=== PATIENT | female | born 1955 | race Caucasian/White ===

== ENCOUNTER 2016-03-08 06:08 | Emergency (ER) | payer OTHER ==
[2016-03-08 07:02] VITALS: BP 110/78
--- NOTE | 2016-03-08 07:53 | Emergency Department Report ---
HPI - General Chief Complaint: Skin Rash Time Seen by Provider: 03/08/16 07:52 - HPI HPI: She is a 61-year-old female who presents to ED complaining of itching rash on her palm of her hands started yesterday. Patient states she has had this allergic reaction for the past 3-4 days and started taking [id number] antihistamine medication when yesterday she noticed a rash on both the palm of her hands. Patient also admits sneezing, runny nose, intermittent nonproductive cough. Patient denies fever/chills/nausea/vomiting/abdominal pain/chest chest pain/ shortness of breath or any other problem. ED Past Medical Hx - Past Medical History Previous Medical History?: Yes Hx Arthritis: Yes Additional medical history: pneumonia - Surgical History Past Surgical History?: Yes Additional Surgical History: x3 - Social History Smoking Status: Current Every Day Smoker Substance Use Type: Non Opiate Pain, Prescribed - Medications Home Medications: Home Medications Medication Instructions Recorded Confirmed Last Taken Type Amoxicillin/K Clav Tab [Augmentin 1 tab PO Q12HR #20 tab 10/15/14 07/26/15 Unknown Rx 875MG TAB] Fluticasone [Flonase] 2 spray NS QDAY #1 bottle 10/15/14 07/26/15 Unknown Rx Ibuprofen [Motrin] 600 mg PO Q8H PRN #40 tablet 10/15/14 07/26/15 Unknown Rx Loratadine [Claritin] 10 mg PO DAILY #30 tablet 03/08/16 Unknown Rx Triamcinolone 0.025% (Nf) [Kenalog 1 applic TP TID #1 tube 03/08/16 Unknown Rx 0.025% OINT] predniSONE [Deltasone] 10 mg PO .TAPER #21 tab 03/08/16 Unknown Rx ED Review of Systems ROS: Stated complaint: RASH Other details as noted in HPI Constitutional: denies: chills, fever Eyes: denies: eye pain, eye discharge, vision change ENT: denies: ear pain, throat pain Respiratory: denies: cough, shortness of breath, wheezing Cardiovascular: denies: chest pain, palpitations Endocrine: no symptoms reported. denies: excessive sweating, flushing Gastrointestinal: denies: abdominal pain, nausea, vomiting, diarrhea, melena Genitourinary: denies: urgency, dysuria, frequency, discharge Musculoskeletal: denies: back pain, joint swelling, arthralgia Skin: rash. denies: lesions Neurological: denies: headache, weakness, paresthesias Psychiatric: denies: anxiety, depression Hematological/Lymphatic: denies: easy bleeding, easy bruising Physical Exam - Physical Exam Vital Signs: Vital Signs 03/08/16 03/08/16 06:37 06:50 Temperature 98.4 F 97.7 F Pulse Rate 121 H 87 Respiratory 20 16 Rate Blood Pressure 146/95 Blood Pressure 146/95 110/78 [Left] O2 Sat by Pulse 100 97 Oximetry Physical Exam: GENERAL: Alert and oriented x3, no apparent distress, Normal Gait, atraumatic. HEAD: Head is normocephalic and a-traumatic. EYES: Extra ocular muscles are intact. Pupils are equal, round, and reactive to light and accommodation. MOUTH:Mouth is well hydrated and without lesions. Tonsils nonerythematous or swollen, Uvula midline, Tongue not elevated. Mucous membranes are moist. Posterior pharynx clear, no exudate or lesions. Patent airways. NECK: Supple. Non edematous, No carotid bruits. No lymphadenopathy or thyromegaly. LUNGS: Symetrical with respiration, No wheezing, no rales or crackles, CTAB. HEART: S1, S2 present, regular rate and rhythm without murmur, no rubs, no gallops. ABDOMEN: No organomegaly was noted,Positive bowel sounds, soft, and non- distended. . Nontender to palpation on all Quadrants, NO CVA tenderness. EXTREMITIES/MUSCULOSKELETAL: No cyanosis, clubbing, rash, lesions or edema. Full ROM bilaterally. UE/LE Pulses 2+ bilaterally. LE and UE 5+ strength bilaterally SKIN: Warm and dry, No lesions, No ulceration or induration present. erythematous macular rash on palm of bilateral hands. mild maculopapular rash on right anterior wrist. mild edmema of palms from itching. ED Course Vital Signs 03/08/16 03/08/16 06:37 06:50 Temperature 98.4 F 97.7 F Pulse Rate 121 H 87 Respiratory 20 16 Rate Blood Pressure 146/95 Blood Pressure 146/95 110/78 [Left] O2 Sat by Pulse 100 97 Oximetry ED Medical Decision Making - Medical Decision Making 61-year-old female presents with allergic dermatitis. Vital signs stable. In no acute distress. Discussed with patient to take medication as prescribed. Discussed with patient follow-up with care physician. Discussed the patient to continue taking Tylenol cough and cold for Robitussin to help with symptomatic relief. Patient verbally states she understands and will comply. Patient states she was not able to go into work today like work excuse. Critical care attestation.: If time is entered above; I have spent that time in minutes in the direct care of this critically ill patient, excluding procedure time. ED Disposition Clinical Impression: Allergic dermatitis Allergic rhinitis Qualifiers: Allergic rhinitis seasonality: unspecified seasonality Allergic rhinitis trigger: unspecified Qualified Code(s): J30.9 - Allergic rhinitis, unspecified Disposition: DISCHARGED TO HOME OR SELFCARE Is pt being admited?: No Does the pt Need Aspirin: No Condition: Stable Instructions: Contact Dermatitis (ED), Allergic Rhinitis (ED), Allergies (ED) Additional Instructions: Take [id number] Robitussin, Tylenol Cold and sinus for symptomatic relief Prescriptions: Loratadine [Claritin] 10 mg PO DAILY #30 tablet predniSONE [Deltasone] 10 mg PO .TAPER #21 tab Triamcinolone 0.025% (Nf) [Kenalog 0.025% OINT] 1 applic TP TID #1 tube Forms: Work/School Release Form(ED) Time of Disposition: 08:19
== END 2016-03-08 08:33 | disposition home or self-care (01) ==
LOC: ED 06:08
DX: L23.9 Allergic contact dermatitis, unspecified cause (principal); J30.9 Allergic rhinitis, unspecified; F17.200 Nicotine dependence, unspecified, uncomplicated
CPT/HCPCS: 99282